=== PATIENT | female | born 1980 | race Caucasian/White ===

== ENCOUNTER 2022-06-18 16:01 | Outpatient (CLI) | payer SELFPAY ==
[2022-06-18 20:50] LABS: Hepatitis B Surface Antigen* Negative (Negative)
[2022-06-18 21:08] LABS: Hepatitis C Virus Antibody* Negative (Negative)
[2022-06-19 11:27] LABS: Hepatitis B Surface Antibody* Negative (Negative)
[2022-06-19 15:01] LABS: HIV 1/2/P24 Combo Screen* Negative (Negative)
[2022-06-21 19:48] LABS: Treponema pallidum VDRL Serum Non Reactive (Non Reactive)
== END 2022-06-18 16:02 | disposition home or self-care (01) ==
PROVIDERS: PCP Internal Medicine; Visit Provider Internal Medicine
DX: Z11.3 Encounter for screening for infections with a predominantly sexual mode of transmission (principal)
CPT/HCPCS: 86592; 86593; 86703; 86706; 86803; 87340

== ENCOUNTER 2023-01-11 07:27 | Outpatient (CLI) | payer OTHER, SELFPAY ==
[2023-01-11 11:20] LABS: Cholesterol* 173 mg/dL (90-199); Glucose* 99 mg/dL (60-115); HDL Cholesterol* 61 mg/dL (>=50); LDL Cholesterol Calculated 99 mg/dL (<100); Triglycerides* 65 mg/dL (40-149)
== END 2023-01-11 07:28 | disposition home or self-care (01) ==
LOC: NFLDREF 07:27
PROVIDERS: PCP Internal Medicine; Visit Provider Internal Medicine
DX: Z01.419 Encounter for gynecological examination (general) (routine) without abnormal findings (principal); E66.9 Obesity, unspecified; Z13.6 Encounter for screening for cardiovascular disorders; Z13.1 Encounter for screening for diabetes mellitus
CPT/HCPCS: 80061; 82947

== ENCOUNTER 2023-09-27 08:54 | Outpatient (CLI) | payer OTHER, SELFPAY ==
--- NOTE | 2023-09-27 09:00 | CRLHL7_ITS ---
For Patients: As a result of the Century Cures Act, medical imaging exams and procedure reports are released immediately into your electronic medical record. You may view this report before your referring provider. If you have questions, please contact your health care provider. INDICATION: RIGHT UPPER EXTREMITY Paresthesia TECHNIQUE: Cervical spine 3 view. COMPARISON: None FINDINGS: Reversal of the normal lordosis. Disc space narrowing and spurring C5-6 and C6-7. No vertebral body compression fracture. Lung apices are clear. Intact odontoid. Normal facet joints. IMPRESSION: Degenerative disc disease C5-6 and C6-7 with reversal of the normal lordosis. Dictated by Marty Gant MD @ 09/27/2023 9:45:06 AM (Electronically Signed)
== END 2023-09-27 08:55 | disposition home or self-care (01) ==
PROVIDERS: PCP Internal Medicine; Visit Provider Nurse Practitioner Family
DX: R20.2 Paresthesia of skin (principal); M50.322 Other cervical disc degeneration at C5-C6 level; M50.323 Other cervical disc degeneration at C6-C7 level
CPT/HCPCS: 72040

== ENCOUNTER 2023-10-07 12:28 | Outpatient (CLI) | payer OTHER, SELFPAY ==
--- NOTE | 2023-10-07 13:00 | CRLHL7_ITS ---
For Patients: As a result of the Century Cures Act, medical imaging exams and procedure reports are released immediately into your electronic medical record. You may view this report before your referring provider. If you have questions, please contact your health care provider. INDICATION: Right upper extremity paresthesia. TECHNIQUE: Multiplanar multisequence noncontrast MR images acquired through the cervical spine. COMPARISON: Cervical spine radiographs 09/27/2023. FINDINGS: Reversal of the cervical lordosis. Mild leftward cervical curvature. No acute fracture or spondylolisthesis. No T1 hypointense marrow replacing lesions. The cervical cord is normal in signal intensity. C2-3: No spinal canal or neural foraminal narrowing. C3-4: Shallow posterior disc bulge. No spinal canal or neural foraminal narrowing. C4-5: Shallow right central disc protrusion with superimposed endplate osteophytes indents the cord. Minimal spinal canal narrowing. No neural foraminal narrowing. C5-6: Mild disc height loss. Shallow posterior disc osteophyte complex. Bilateral uncinate spurring. Mild spinal canal narrowing. No neural foraminal narrowing. C6-7: Moderate disc height loss. Minimal vertebral body edema. Posterior disc osteophyte complex with superimposed broad-based right central/foraminal disc protrusion measuring 4 mm in short axis. Mild spinal canal narrowing. Severe right and moderately-severe left neural foraminal stenosis. C7-T1: No spinal canal or neural foraminal narrowing. IMPRESSION: 1. Multilevel cervical spondylosis without spinal canal stenosis. 2. At C6-7, broad-based right central/foraminal disc protrusion likely impinges the right C7 nerve root. Dictated by Mao Manley MD @ 10/07/2023 4:05:00 PM (Electronically Signed)
== END 2023-10-07 12:29 | disposition home or self-care (01) ==
LOC: MRI 12:29
PROVIDERS: PCP Internal Medicine; Visit Provider Nurse Practitioner Family
DX: R20.2 Paresthesia of skin (principal); M47.892 Other spondylosis, cervical region; M50.223 Other cervical disc displacement at C6-C7 level
CPT/HCPCS: 72141

== ENCOUNTER 2023-10-11 15:30 | Outpatient (RCR) | payer OTHER, SELFPAY | END 2023-11-07 14:39 | disposition home or self-care (01) | PROVIDERS: PCP Internal Medicine; Visit Provider Nurse Practitioner Family | DX: M79.18 Myalgia, other site (principal); Z51.89 Encounter for other specified aftercare | CPT/HCPCS: 97032; 97110; 97140; 97161 ==

== ENCOUNTER 2024-04-22 14:46 | Outpatient (CLI) | payer OTHER, SELFPAY ==
--- OUTSIDE RECORDS SUMMARY | 2024-04-22 14:49 | XMS_ITS | Clinical Summary ---
Author Organization [facility] Address [place], [place] [address] Care Team Providers Care Plasterer Helper Name Role Phone Gianluca Devi MD Unavailable [phone] Stephanie Steen MD Primary Care Provider [phone] Allergies Active Allergy Reactions Criticality Noted Date Comments Sulfamethoxazole-Trimeth oprim Itching,Rash 07/21/2012 Propoxyphene-Acetaminoph en Tremors 12/31/2007 shakey Darvocet shaky, hard to breath Medications Medication Sig Dispensed Refills Start Date End Date Status naratriptan (AMERGE) 2.5 mg tablet TAKE 1 TABLET BY MOUTH TWICE A DAY AT ONSET OF HEADACHE, MAY REPEAT ONCE AFTER 4 HOURS 10 02/22/2018 Active ondansetron (ZOFRAN ODT) 4 mg disintegrating tabletIndications:Na usea vomiting and diarrhea Place 1 Tablet (4 mg) on the tongue every 8 hours if needed for Nausea/Vomiting. 10 Tablet 10/04/2023 Active gabapentin (NEURONTIN) 300 mg capsule Take 300 mg by mouth three times daily. Active semaglutide (OZEMPIC) 2 mg/1.5 mL pen Inject 1 mg subcutaneous once weekly. Active diclofenac topical (VOLTAREN) 1 % gelIndications:Cervi phyllis radiculopathy Apply 2 gm to affected area three times daily as needed for pain 150 g 2 12/18/2023 Active lidocaine 4 % topical patchIndications:Cer vical radiculopathy Apply 1-2 patches to intact skin to cover most painful area for max 12hr per 24hr period. 30 Patch 2 12/18/2023 Active gabapentin (NEURONTIN) 300 mg capsuleIndications:C ervical radiculopathy 300mg 3 times/day for 7 days, after then [id number] for 7 days, after then [id number] for 7 days, after then 600mg 3 times/day. 180 Capsule 12/18/2023 Active galcanezumab-gnlm (Emgality Syringe) 120 mg/mL syrgIndications:Intr actable chronic migraine with aura and without status migrainosus Emgality. First injection 240 mg (2 ml) and after then 120 mg (1 ml) per month. 2 mL 02/17/2024 Active naratriptan (AMERGE) 2.5 mg tabletIndications:In tractable chronic migraine with aura and without status migrainosus Take 1 Tablet (2.5 mg) by mouth 2 times daily if needed for Migraine. Give at minimum 4hrs apart. Max Dose: 5mg per 24hrs. 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 Migraine without aura and wi thout status migrainosus, not intractable 07/20/2015 Major depressive disorder, recurrent episode, mi ld 06/16/2012 Calculus of gallbladder with out mention of cholecystitis or obstruction 07/14/2010 Cervical dysplasia 06/28/2010 GERD (gastroesophageal reflux disease) 0 Tinea versicolor 08/03/2009 Major depressive disorder, recurrent episode, un specified 02/16/2008 Resolved Problems Problem Noted Date Diagnosed Date Resolved Date Migraine headache 05/30/2010 07/20/2015 Encounters Date Type Department Care Team Description 03/04/2024 Telephone [facility] [address] [address] Eduardo Lockwood MD Prior Authorization (galcanezumab-gnlm (Emgality Syringe) 120 mg/mL syrg *LOADING DOSE* Approved 03/06/2024 - 09/05/2024 [id number]) 02/17/2024 1:45 PM CDT Office Visit [facility] [address] [address] Eduardo Lockwood MD Follow Up 02/17/2024 Travel 01/27/2024 2:56 PM DRY CURE WORKER - 01/27/2024 11:59 PM DRY CURE WORKER Hospital Encounter [facility] [address] [address] Eduardo Lockwood MD Iverson, Ryan, PT Cervical radiculopathy; Intractable chronic migraine with aura with status migrainosus 01/27/2024 Travel from Last 3 Months Immunizations Name Administration Dates Next Due Tdap 03/01/2009 Family History Medical History Relation Name Comments Alcoholism Father Cancer Father Heart Disease Father heart attack Hyperlipidemia Father Hypertension Father Cancer Mother Heart Disease Mother Hyperlipidemia Mother Hypertension Mother Obesity Mother Other Other 1 no fam ho colon cancer Other Other 2 no fam ho breas t cancer Cancer Paternal Grandmother lung ca ncer Hyperlipidemia Sister Hypertension Sister Relation Name Status Comments Father Mother Other 1 Other 2 Paternal Grandmother Sister Social History Tobacco Use Types Packs/Day Years Used Date Smoking Tobacco: Never Smokeless Tobacco: Never Tobacco Cessation:Counseling Given: Yes Alcohol Use Standard Drinks/Week Comments No 0 (1 standard drink = 0.6 oz pur e alcohol) Sex and Gender Information Value Date Recorded Sex Assigned at Not on file Gender Identity Not on file Sexual Orientation Not on file Obstetrics History Para Term AB IAB SAB Ectopic Multiple Livin g Live Births 3 2 2 Date Outcome GA Total Labor Labor/2nd/3rd Weight Sex Delivery Anes PTL Marlen A1 A5 Name Cl in Para Para Last Filed Vital Signs Vital Sign Reading Time Taken Comments Blood Pressure 112/76 02/17/2024 1:54 PM CDT Pulse 74 02/17/2024 1:54 PM CDT Temperature 37.6 ??C (99.7 ??F) 02/17/2024 1:54 PM CD T Respiratory Rate 12 02/17/2024 1:54 PM CDT Oxygen Saturation 97% 02/17/2024 1:54 PM CDT Inhaled Oxygen Concentration - - Weight 80.3 kg (177 lb) 02/17/2024 1:54 PM CDT Height 165.1 cm (5' 5) 12/18/2023 1:25 PM DRY CURE WORKER Body Mass Index 29.45 12/18/2023 1:25 PM DRY CURE WORKER Plan of Treatment Upcoming Encounters Date Type Department Care Team (Late st Contact Info) Description 05/18/2024 2:15 PM CDT Office Visit [facility] [address] [place] [address] Eduardo Lockwood MD [address] [place] [address] Health Maintenance Due Date Last Done Comments Depression screening for age 12+ 06/01/2017 06/01/2016 Tetanus booster 03/01/2019 03/01/2009 Colonoscopy through age 75 2023 Lipids for age 45-75 2023 12/02/2014, 05/03/20 09 Mammogram for age 45-75 2023 COVID-19 vaccine series (2022- season) 2023 Influenza for age 9-49 07/26/2024 BMI (ht and wt on same day) for age 18+ 12/18/2024 12/18/2023, 02/20/2017, 01/11/2017, Additional history exists Pap test for age 21-65 01/29/2026 3, 01/29/2023, 11/29/2014, Additional history exists Tdap Completed 03/01/2009 HIV for age 15-65 Completed 12/02/2014, , 11/26/2011 Hepatitis C screening for age 18-79 Completed 12/02/2014, 11/26/2011 Pneumococcal series for age 6-64 Aged Out No longer eligible based on patient's age to complete this topic Procedures Procedure Name Priority Date/Time Associated Diagnosis Comments HPV THIN PREP Routine 01/29/2023 3:00 PM DRY CURE WORKER ANTI HIV 1/2 Routine 12/02/2014 8:54 AM DRY CURE WORKER Screen for STD (sexually transmitted disease) ANTI HCV Routine 12/02/2014 8:54 AM DRY CURE WORKER Screen for STD (sexually transmitted disease) LIPID PANEL W REFLEX MEASURED LDL Routine 12/02/2014 8:54 AM DRY CURE WORKER Screening cholesterol level from Last 3 Months or Most Recently Relevant to Health Maintenance Results * HPV HIGH RISK (01/29/2023 3:00 PM DRY CURE WORKER) TYPE 16 Negative Negative 02/02/2023 3:37 PM DRY CURE WORKER [facility] LAB[facility] TYPE 18 Negative Negative 02/02/2023 3:37 PM DRY CURE WORKER [facility] TRAL LAB[facility]ORY OTHER HIGH RISK TYPES Negative Negative 02/02/2023 3:37 PM DRY CURE WORKER [facility] TRA LABOR[facility] Other (Cervical/Vagina l) 01/29/2023 3:00 PM DRY CURE WORKER 01/30/2023 5:31 PM DRY CURE WORKER [facility] LABORATORY - 02/02/2023 3:37 PM DRY CURE WORKER HPV types 16, 18, 31, 33, 35, 39, 45, 51, 52, 56, 58, 59, 66 and 68 DNA were undetectable or below the pre-set threshold. Methodology: NextDocs Jp 4800 HPV Test Stephanie Steen MD MICROBIOLOGY [facility] [address] [place] [address], * LIPID PANEL W REFLEX MEASURED LDL (12/02/2014 8:54 AM DRY CURE WORKER) CHOLESTEROL,TOTAL 193 100 - 199 mg/dL 12/02/2014 9:38 AM [facility] TRIGLYCERIDES 75 <150 mg/dL 12/02/2014 9:38 AM [facility] HDL CHOLESTEROL 54 >40 mg/dL 9:38 AM [facility] NON-HDL CHOLESTEROL 139 <145 mg/dl 12/02/2014 9:38 AM [facility] CHOL/HDL RATIO 3.57 <4.50 12/02/2014 9:38 AM [facility] LDL CHOLESTEROL 124 <=130 mg/dL 12/02/2014 9:38 AM [facility] PATIENT STATUS FASTING 12/02/2014 9:38 AM [facility] Blood specimen (specimen) BLOOD SPECIMEN / Unknown Venipuncture / Unknown 12/02/2014 8:54 AM DRY CURE WORKER 12/02/2014 8:54 AM DRY CURE WORKER Katie NATARAJAN CHEMISTRY [facility] [address] [place] [address], * ANTI HCV (12/02/2014 8:54 AM DRY CURE WORKER) HEPATITIS C ANTIBODY Non-Reacti ve Non-Reacti ve 12/02/2014 6:25 PM DRY CURE WORKER [facility] TRAL [facility] Blood specimen (specimen) BLOOD SPECIMEN / Unknown Venipuncture / Unknown 12/02/2014 8:54 AM DRY CURE WORKER 12/02/2014 8:54 AM DRY CURE WORKER Narrative [facility] - 12/02/2014 6:25 PM DRY CURE WORKER Antibodies to HCV not detected; does not exclude the possibility of exposure to HCV. Katie NATARAJAN SEND OUTS Performing Organization Address City/[facility]/ZIP Co de Phone Number [facility] [address] [place] [address], [place] * ANTI HIV 1/2 (12/02/2014 8:54 AM DRY CURE WORKER) HIV-1/HIV-2 ANTIBODY Non-Reacti ve Non-Reacti ve 12/02/2014 6:21 PM DRY CURE WORKER [facility] TR[facility] Blood specimen (specimen) BLOOD SPECIMEN / Unknown Venipuncture / Unknown 12/02/2014 8:54 AM DRY CURE WORKER 12/02/2014 8:54 AM DRY CURE WORKER Narrative [facility] - 12/02/2014 6:21 PM DRY CURE WORKER HIV-1 p24 and HIV-1/HIV-2 Ab not detected Katie NATARAJAN SEND OUTS [facility] [address] [place] [address], [place] from Last 3 Months or Most Recently Relevant to Health Maintenance Advance Directives * Full Code (Latest Code Status on File) Date Activated Date Inactivated Comments 03/05/2018 8:19 AM 03/05/2018 4:51 PM Care Teams Plasterer Helper Relationship Specialty Start Date End Date Stephanie Steen MD [address] [place] [address] PCP - General Internal Medicine 02/26/18 Gianluca Devi MD [address] [facility] [address] [place] [address] Rheumatology Rheumatology 12/02/14
--- NOTE | 2024-04-22 15:00 | CRLHL7_ITS ---
For Patients: As a result of the Century Cures Act, medical imaging exams and procedure reports are released immediately into your electronic medical record. You may view this report before your referring provider. If you have questions, please contact your health care provider. BILATERAL SCREENING MAMMOGRAM WITH COMPUTER-AIDED DETECTION AND TOMOSYNTHESIS TECHNIQUE: CC, MLO and Implant displaced views were obtained. These mammographic images have been obtained using full-field digital technique. These mammographic images were interpreted with the benefit of computer-aided detection. Breast Tomosynthesis was used in this interpretation. COMPARISON FILM: 04/17/23, 01/13/19. FINDINGS: The breasts are heterogeneously dense, which may obscure small masses. IMPRESSION: There is no radiographic evidence for malignancy. ASSESSMENT: BI-RADS Category 2: Benign RECOMMENDATION: Routine screening mammogram in 1 year. A lay language report of this examination will be provided to the patient. Marty Gant M.D. Diagnostic Radiologist [employer] [facility] [email or web address] SP/Dictated by: Marty Gant MD @ 04/27/2024 12:16:00 PM (Electronically Signed)
== END 2024-04-22 14:47 | disposition home or self-care (01) ==
LOC: MAMMO 14:47
PROVIDERS: PCP Internal Medicine; Visit Provider Internal Medicine
DX: Z12.31 Encounter for screening mammogram for malignant neoplasm of breast (principal); R92.2 Inconclusive mammogram
CPT/HCPCS: 77063; 77067

== ENCOUNTER 2024-05-11 16:16 | Outpatient (CLI) | payer OTHER, SELFPAY ==
--- OUTSIDE RECORDS SUMMARY | 2024-05-11 16:19 | XMS_ITS | Clinical Summary ---
Author Organization [facility] Address [place], [place] [address] Care Team Providers Care Mortar Mixer Name Role Phone Gianluca Devi MD Unavailable [phone] Stephanie Steen MD Primary Care Provider [phone] Allergies Active Allergy Reactions Criticality Noted Date Comments Sulfamethoxazole-Trimeth oprim Itching,Rash 07/21/2012 Propoxyphene-Acetaminoph en Tremors 12/31/2007 shakey Darvocet shaky, hard to breath Medications Medication Sig Dispensed Refills Start Date End Date Status naratriptan (AMERGE) 2.5 mg tablet TAKE 1 TABLET BY MOUTH TWICE A DAY AT ONSET OF HEADACHE, MAY REPEAT ONCE AFTER 4 HOURS 10 8 Active ondansetron (ZOFRAN ODT) 4 mg disintegrating tabletIndications:N ausea vomiting and diarrhea Place 1 Tablet (4 mg) on the tongue every 8 hours if needed for Nausea/Vomiting. 10 Tablet 3 Active gabapentin (NEURONTIN) 300 mg capsule Take 300 mg by mouth three times daily. Active semaglutide (OZEMPIC) 2 mg/1.5 mL pen Inject 1 mg subcutaneous once weekly. Active diclofenac topical (VOLTAREN) 1 % gelIndications:Cerv ical radiculopathy Apply 2 gm to affected area three times daily as needed for pain 150 g 2 4 Active lidocaine 4 % topical patchIndications:Ce rvical radiculopathy Apply 1-2 patches to intact skin to cover most painful area for max 12hr per 24hr period. 30 Patch 2 4 Active gabapentin (NEURONTIN) 300 mg capsuleIndications: Cervical radiculopathy 300mg 3 times/day for 7 days, after then [id number] for 7 days, after then [id number] for 7 days, after then 600mg 3 times/day. 180 Capsule 4 Active galcanezumab-gnlm (Emgality Syringe) 120 mg/mL syrgIndications:Int ractable chronic migraine with aura and without status migrainosus Emgality. First injection 240 mg (2 ml) and after then 120 mg (1 ml) per month. 2 mL 4 Active naratriptan (AMERGE) 2.5 mg tabletIndications:I ntractable chronic migraine with aura and without status migrainosus Take 1 Tablet (2.5 mg) by mouth 2 times daily if needed for Migraine. Give at minimum 4hrs apart. Max Dose: 5mg per 24hrs. 9 Tablet 4 Active naratriptan (AMERGE) 2.5 mg tabletIndications:I ntractable chronic migraine with aura and without status migrainosus Take 1 Tablet (2.5 mg) by mouth 2 times daily if needed for Migraine. Give at minimum 4hrs apart. Max Dose: 5mg per 24hrs. 9 Tablet 1 4 04/28/20 24 Discontinu ed(Reorder (E-cancel not sent)) Active Problems Problem Noted Date Diagnosed Date [...] Encounters Date Type Department Care Team Description 04/28/2024 Refill [facility] [address] [place] [address] Eduardo Lockwood MD Refill Request (Naratriptan ) 03/04/2024 Telephone [facility] [address] [place] [address] Eduardo Lockwood MD Prior Authorization (galcanezumab-gnlm (Emgality Syringe) 120 mg/mL syrg *LOADING DOSE* Approved 03/06/2024 - 09/05/2024 [id number]) 02/17/2024 1:45 PM CDT Office Visit [facility] [address] [facility] [address] [place] [address] Eduardo Lockwood MD Follow Up 02/17/2024 Travel from Last 3 Months Immunizations Name [...] Outcome GA Total Labor Labor/2nd/3rd Weight Sex Type Anes PTL Marlen A1 A5 Name Clin Para Para Last Filed Vital Signs Vital [...] 165.1 cm (5' 5) 12/18/2023 1:25 PM MED SURG RN Body Mass Index 29.45 12/18/2023 1:25 PM MED SURG RN Plan of Treatment Upcoming Encounters Date Type Department Care Team (Late st Contact Info) Description 05/18/2024 2:15 PM CDT Office Visit [facility] [address] [place] [address] Eduardo Lockwood MD [address] [place] [address] Health Maintenance Due Date Last Done Comments Depression screening for age 12+ 06/01/2017 06/01/2016 Tetanus booster 03/01/2019 03/01/2009 Colonoscopy through age 75 2023 Lipids for age 45-75 2023 12/02/2014, 05/03/20 09 Mammogram for age 45-75 2023 COVID-19 vaccine series ( season) 2023 Influenza for age 9-49 07/26/2024 [...] HPV THIN PREP Routine 01/29/2023 3:00 PM MED SURG RN ANTI HIV 1/2 Routine 12/02/2014 8:54 AM MED SURG RN Screen for STD (sexually transmitted disease) ANTI HCV Routine 12/02/2014 8:54 AM MED SURG RN Screen for STD (sexually transmitted disease) LIPID PANEL W REFLEX MEASURED LDL Routine 12/02/2014 8:54 AM MED SURG RN Screening cholesterol level from Last 3 Months or Most Recently Relevant to Health Maintenance Results * HPV HIGH RISK (01/29/2023 3:00 PM MED SURG RN) TYPE 16 Negative Negative 02/02/2023 3:37 PM MED SURG RN [facility] TR[facility] LAB[facility] TYPE 18 Negative Negative 02/02/2023 3:37 PM MED SURG RN [facility] TRAL LAB[facility] OTHER HIGH RISK TYPES Negative Negative 02/02/2023 3:37 PM MED SURG RN [facility] TRAL LABORATORY Other (Cervical/Vagina l) 01/29/2023 3:00 PM MED SURG RN 01/30/2023 5:31 PM MED SURG RN [facility] - 02/02/2023 3:37 PM MED SURG RN HPV types 16, 18, 31, 33, 35, 39, 45, 51, 52, 56, 58, 59, 66 and 68 DNA were undetectable or below the pre-set threshold. Methodology: [employer] Jp 4800 HPV Test Stephanie Steen MD MICROBIOLOGY [facility] [address] [place] [address], * LIPID PANEL W REFLEX MEASURED LDL (12/02/2014 8:54 AM MED SURG RN) CHOLESTEROL,TOTAL 193 100 - 199 mg/dL 12/02/2014 9:38 AM [facility] TRIGLYCERIDES 75 <150 mg/dL 12/02/2014 9:38 AM [facility] HDL CHOLESTEROL 54 >40 mg/dL 5 9:38 AM [facility] NON-HDL CHOLESTEROL 139 <145 mg/dl 12/02/2014 9:38 AM [facility] CHOL/HDL RATIO 3.57 <4.50 12/02/2014 9:38 AM [facility] LDL CHOLESTEROL 124 <=130 mg/dL 12/02/2014 9:38 AM [facility] PATIENT STATUS FASTING 12/02/2014 9:38 AM MED SURG RN [facility] Blood specimen (specimen) BLOOD SPECIMEN / Unknown Venipuncture / Unknown 12/02/2014 8:54 AM MED SURG RN 12/02/2014 8:54 AM MED SURG RN Katie NATARAJAN CHEMISTRY [facility] [address] [place] [address], * ANTI HCV (12/02/2014 8:54 AM MED SURG RN) HEPATITIS C ANTIBODY Non-Reacti ve Non-Reacti ve 12/02/2014 6:25 PM MED SURG RN [facility] TRAL LABORATORY Blood specimen (specimen) BLOOD SPECIMEN / Unknown Venipuncture / Unknown 12/02/2014 8:54 AM MED SURG RN 12/02/2014 8:54 AM MED SURG RN Narrative [facility] - 12/02/2014 6:25 PM MED SURG RN Antibodies to HCV not detected; does not exclude the possibility of exposure to HCV. Katie NATARAJAN SEND OUTS [facility] [employer] LABORATORY [address] [place] [address], * ANTI HIV 1/2 (12/02/2014 8:54 AM MED SURG RN) HIV-1/HIV-2 ANTIBODY Non-Reacti ve Non-Reacti ve 12/02/2014 6:21 PM MED SURG RN [facility] Blood specimen (specimen) BLOOD SPECIMEN / Unknown Venipuncture / Unknown 12/02/2014 8:54 AM MED SURG RN 12/02/2014 8:54 AM MED SURG RN Narrative [facility] - 12/02/2014 6:21 PM MED SURG RN HIV-1 p24 and HIV-1/HIV-2 Ab not detected Katie NATARAJAN SEND OUTS [facility] [address] [place] [address], from Last 3 Months or Most Recently Relevant to Health Maintenance Advance Directives * Full Code (Latest Code Status on File) Date Activated Date Inactivated Comments 03/05/2018 8:19 AM 03/05/2018 4:51 PM Care Teams Mortar Mixer Relationship Specialty Start Date End Date Stephanie Steen MD [address] [place] [address] PCP - General Internal Medicine 02/26/18 Gianluca Devi MD [address] [facility] [address] [place] [address] Rheumatology Rheumatology 12/02/14
== END 2024-05-11 16:17 | disposition home or self-care (01) ==
PROVIDERS: PCP Internal Medicine; Visit Provider Internal Medicine
DX: R53.83 Other fatigue (principal); R53.81 Other malaise
CPT/HCPCS: 80053; 82306; 82550; 82607; 82728; 84443; 86140; 86618

== ENCOUNTER 2024-06-26 05:34 | Outpatient (CLI) | payer OTHER, SELFPAY ==
--- OUTSIDE RECORDS SUMMARY | 2024-06-26 05:36 | XMS_ITS | Clinical Summary ---
Author Organization [facility] [facility] Address [place], [place] [address] Care Team Providers Care Fur Stretcher Name Role Phone Gianluca Devi MD Unavailable [phone] Stephanie Seten MD Primary Care Provider [phone] Allergies Active Allergy Reactions Criticality Noted Date Comments Sulfamethoxazole-Trimeth oprim Itching,Rash 07/21/2012 Propoxyphene-Acetaminoph en Tremors 12/31/2007 shakey Darvocet shaky, hard to breath Medications Medication Sig Dispensed Refills Start Date End Date Status ondansetron (ZOFRAN ODT) 4 mg disintegrating tabletIndications:Na [...] 3 times/day for 7 days, after then [id number] for 7 days, after then [id number] for 7 days, after then 600mg 3 [...] Max Dose: 5mg per 24hrs. 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 First shot 240mg (2 ml) and after then 120mg (1ml) every month 1 mL 5 05/18/2024 Active naratriptan (AMERGE) 2.5 mg tabletIndications:In tractable chronic migraine with aura with status migrainosus Give at minimum 4hrs apart. Max Dose: 5mg per 24hrs. 9 Tablet 11 05/18/2024 Active Active Problems Problem Noted Date Diagnosed [...] Encounters Date Type Department Care Team Description 05/18/2024 2:15 PM CDT Office Visit [facility] [address] [facility] [address] [place] [address] Eduardo Lockwood MD Follow Up 05/18/2024 Travel 04/28/2024 Refill [facility] [address] [facility] [address] [place] [address] Eduardo Lockwood MD Refill Request (Naratriptan ) from Last 3 Months Immunizations Name Administration [...] Sign Reading Time Taken Comments Blood Pressure 106/71 05/18/2024 2:09 PM CDT Pulse 77 05/18/2024 2:09 PM CDT Temperature 36.8 ??C (98.3 ??F) 05/18/2024 2:09 PM CD T Respiratory Rate 14 05/18/2024 2:09 PM CDT Oxygen Saturation 100% 05/18/2024 2:09 PM CDT Inhaled Oxygen Concentration - - Weight 70.8 kg (156 lb) 05/18/2024 2:09 PM CDT Height 165.1 cm (5' 5) 05/18/2024 2:09 PM CDT Body Mass Index 25.96 05/18/2024 2:09 PM CDT Plan of Treatment Upcoming Encounters Date Type Department Care Team (Late st Contact Info) Description 11/09/2024 10:45 AM HEALTHCARE RECRUITER Office Visit [facility] [employer] [facility] [address] [facility] [address] [place] [address] Eduardo Lockwood MD [address] [facility] [address] [place] [address] Health Maintenance Due Date Last Done Comments Depression screening for age 12+ 06/01/2017 06/01/2016 Tetanus booster 03/01/2019 03/01/2009 Colonoscopy through age 75 2023 Lipids for age 45-75 2023 12/02/2014, 05/03/20 09 Mammogram for age 45-75 2023 COVID-19 vaccine series ( season) 2023 Influenza for age 9-49 07/26/2024 BMI (ht and wt on same day) for age 18+ 05/18/2025 05/18/2024, 12/18/2023, 02/20/2017, Additional history exists Pap test for age 21-65 01/29/2026 , 01/29/2023, 11/29/2014, Additional history exists Tdap Completed 03/01/2009 HIV for age 15-65 Completed 12/02/2014, , 11/26/2011 Hepatitis C screening for age 18-79 Completed 12/02/2014, 11/26/2011 Pneumococcal series for age 6-64 Aged Out No longer eligible based on patient's age to complete this topic Procedures Procedure Name Priority Date/Time Associated Diagnosis Comments HPV THIN PREP Routine 01/29/2023 3:00 PM HEALTHCARE RECRUITER ANTI HIV 1/2 Routine 12/02/2014 8:54 AM HEALTHCARE RECRUITER Screen for STD (sexually transmitted disease) ANTI HCV Routine 12/02/2014 8:54 AM HEALTHCARE RECRUITER Screen for STD (sexually transmitted disease) LIPID PANEL W REFLEX MEASURED LDL Routine 12/02/2014 8:54 AM HEALTHCARE RECRUITER Screening cholesterol level from Last 3 Months or Most Recently Relevant to Health Maintenance Results * HPV HIGH RISK (01/29/2023 3:00 PM HEALTHCARE RECRUITER) TYPE 16 Negative Negative 02/02/2023 3:37 PM HEALTHCARE RECRUITER [facility] TYPE 18 Negative Negative 02/02/2023 3:37 PM HEALTHCARE RECRUITER [facility] OTHER HIGH RISK TYPES Negative Negative 02/02/2023 3:37 PM HEALTHCARE RECRUITER [facility] Other (Cervical/Vagina l) 01/29/2023 3:00 PM HEALTHCARE RECRUITER 01/30/2023 5:31 PM HEALTHCARE RECRUITER Narrative [facility] - 02/02/2023 3:37 PM HEALTHCARE RECRUITER HPV types 16, 18, 31, 33, 35, 39, 45, 51, 52, 56, 58, 59, 66 and 68 DNA were undetectable or below the pre-set threshold. Methodology: Glendy Jp 4800 HPV Test Stephanie Steen MD MICROBIOLOGY [facility] [address] [place] [address], * LIPID PANEL W REFLEX MEASURED LDL (12/02/2014 8:54 AM HEALTHCARE RECRUITER) CHOLESTEROL,TOTAL 193 100 - 199 mg/dL 12/02/2014 9:38 AM HEALTHCARE RECRUITER [facility] TRIGLYCERIDES 75 <150 mg/dL 12/02/2014 9:38 AM HEALTHCARE RECRUITER [facility] HDL CHOLESTEROL 54 >40 mg/dL 5 9:38 AM HEALTHCARE RECRUITER [facility] NON-HDL CHOLESTEROL 139 <145 mg/dl 12/02/2014 9:38 AM [facility] CHOL/HDL RATIO 3.57 <4.50 12/02/2014 9:38 AM HEALTHCARE RECRUITER [facility] LDL CHOLESTEROL 124 <=130 mg/dL 12/02/2014 9:38 AM HEALTHCARE RECRUITER [facility] PATIENT STATUS FASTING 12/02/2014 9:38 AM HEALTHCARE RECRUITER [facility] Blood specimen (specimen) BLOOD SPECIMEN / Unknown Venipuncture / Unknown 12/02/2014 8:54 AM HEALTHCARE RECRUITER 12/02/2014 8:54 AM HEALTHCARE RECRUITER Katie NATARAJAN CHEMISTRY [facility] [address] [place] [address], * ANTI HCV (12/02/2014 8:54 AM HEALTHCARE RECRUITER) HEPATITIS C ANTIBODY Non-Reacti ve Non-Reacti ve 12/02/2014 6:25 PM HEALTHCARE RECRUITER [facility] Blood specimen (specimen) BLOOD SPECIMEN / Unknown Venipuncture / Unknown 12/02/2014 8:54 AM HEALTHCARE RECRUITER 12/02/2014 8:54 AM HEALTHCARE RECRUITER Narrative [facility] - 12/02/2014 6:25 PM HEALTHCARE RECRUITER Antibodies to HCV not detected; does not exclude the possibility of exposure to HCV. Katie NATARAJAN SEND OUTS [facility] [address] [place] [address], [place] * ANTI HIV 1/2 (12/02/2014 8:54 AM HEALTHCARE RECRUITER) Pathologist [facility] HIV-1/HIV-2 ANTIBODY Non-Reacti ve Non-Reacti ve 12/02/2014 6:21 PM HEALTHCARE RECRUITER [facility] Blood specimen (specimen) BLOOD SPECIMEN / Unknown Venipuncture / Unknown 12/02/2014 8:54 AM HEALTHCARE RECRUITER 12/02/2014 8:54 AM HEALTHCARE RECRUITER Narrative [facility] - 12/02/2014 6:21 PM HEALTHCARE RECRUITER HIV-1 p24 and HIV-1/HIV-2 Ab not detected Katie NATARAJAN SEND OUTS [facility] [address] [place] [address], [place] from Last 3 Months or Most Recently Relevant to Health Maintenance Advance Directives * Full Code (Latest Code Status on File) Date Activated Date Inactivated Comments 03/05/2018 8:19 AM 03/05/2018 4:51 PM Care Teams Fur Stretcher Relationship Specialty Start Date End Date Stephanie Steen MD [address] [place] [address] PCP - General Internal Medicine 02/26/18 Gianluca Devi MD [address] [facility] [address] [place] [address] Rheumatology Rheumatology 12/02/14
== END 2024-06-26 05:35 | disposition home or self-care (01) ==
LOC: NFLDREF 05:35
PROVIDERS: PCP Internal Medicine; Visit Provider Family Medicine
DX: R39.9 Unspecified symptoms and signs involving the genitourinary system (principal); N39.0 Urinary tract infection, site not specified; N89.8 Other specified noninflammatory disorders of vagina
CPT/HCPCS: 87086

== ENCOUNTER 2024-11-02 15:56 | Outpatient (CLI) | payer OTHER, SELFPAY | END 2024-11-02 15:57 | disposition home or self-care (01) | LOC: NFLDREF 11-05 13:34 | PROVIDERS: PCP Internal Medicine; Referring Provider Internal Medicine | DX: R30.0 Dysuria (principal); N76.0 Acute vaginitis; B96.89 Other specified bacterial agents as the cause of diseases classified elsewhere | CPT/HCPCS: 87086; 87186 ==

== ENCOUNTER 2025-08-19 15:05 | Outpatient (CLI) | payer OTHER, SELFPAY ==
--- NOTE | 2025-08-19 15:20 | CRLHL7_ITS ---
For Patients: As a result of the Century Cures Act, medical imaging exams and procedure reports are released immediately into your electronic medical record. You may view this report before your referring provider. If you have questions, please contact your health care provider. INDICATION: BILATERAL SCREENING MAMMOGRAM W/IMPLANTS, ASYMPTOMATIC 45 Y/O FEMALE COMPARISON: 04/22/2024, 04/17/2023, 01/13/2019 TECHNIQUE: Digital mammogram in CC and MLO projections including computer-aided detection (CAD) and tomosynthesis. BREAST COMPOSITION: There are scattered areas of fibroglandular density. FINDINGS: No suspicious findings. ASSESSMENT: BI-RADS 2 Benign RECOMMENDATION: Annual screening mammogram. A lay language report of this examination will be provided to the patient. Dictated by: Marty Gant MD @ 08/20/2025 09:56:18 (Electronically Signed)
== END 2025-08-19 15:06 | disposition home or self-care (01) ==
LOC: MAMMO 15:06
PROVIDERS: PCP Internal Medicine; Visit Provider Registered Nurse
DX: Z12.31 Encounter for screening mammogram for malignant neoplasm of breast (principal)
CPT/HCPCS: 77063; 77067

== ENCOUNTER 2025-08-24 09:28 | Outpatient (CLI) | payer OTHER, SELFPAY | END 2025-08-24 09:29 | disposition home or self-care (01) | PROVIDERS: PCP Internal Medicine; Visit Provider Internal Medicine | DX: N95.1 Menopausal and female climacteric states (principal); R53.81 Other malaise | CPT/HCPCS: 80053; 82550; 84443; 86140 ==